=== PATIENT | female | born 1975 | race Caucasian/White ===

== ENCOUNTER 2019-04-13 02:40 | Emergency (ER) | payer BC, OTHER ==
[2019-04-13] MEDS ORDERED: DIPHENHYDRAMINE HCL 50 MG/ML VIAL IV ONE (04:18)
[2019-04-13] MEDS ORDERED: NORMAL SALINE 1000 ML 1,000 ML IV ONE ×2 (04:18→07:29)
[2019-04-13] MEDS ORDERED: PROCHLORPERAZINE EDISYLATE INJ 10 MG/2 ML VIAL IV ONE (04:18)
--- NOTE | 2019-04-13 04:40 | ER Document Report ---
ED Headache - General Chief Complaint: Headache >24 hrs old Stated Complaint: LEFT SIDE NUMBNESS Time Seen by Provider: 04/13/19 03:25 Mode of Arrival: Ambulatory Information source: Patient Notes: Patient is a 43-year-old female presenting to the emergency department chief complaint of headache that has been ongoing for 3 days. Patient denies history of migraines but reports that she has had headaches in the past. She states that when her headache first started it felt like a usual headache and had a gradual onset. She states it was located on the right side of her head and now has progressed around to the left side of her head.. She states she took Tylenol and then ibuprofen with no relief. Patient reports pain is been pretty persistent over the last 3 days although she has been able to fall sleep and sleep to the headache. She does report some light and noise sensitivity and a metallic taste in her mouth. She also reports some associated fatigue. She reports past medical history of diabetes. Patient reports she is concerned she may be having an aneurysm due to a family history of aneurysms and migraines. TRAVEL OUTSIDE OF THE [place] IN LAST 30 DAYS: No - Related Data Allergies/Adverse Reactions: ciprofloxacin [From Cipro] Allergy (Verified 04/13/19 03:08) ciprofloxacin HCl [From Cipro] Allergy (Verified 04/13/19 03:08) gatifloxacin [From Tequin] Allergy (Verified 04/13/19 03:08) loratadine [Loratadine] Allergy (Verified 04/13/19 03:08) Past Medical History - General Information source: Patient - Social History Smoking Status: Never Smoker Chew tobacco use (# tins/day): No Frequency of alcohol use: None Drug Abuse: None Family History: Arthritis, CAD, CVA, DM, Hyperlipidemia, Hypertension, Malignancy, Thyroid Disfunction, Other - 2 family members have of brain aneurysms, multiple family members have migraine headaches Patient has suicidal ideation: No Patient has homicidal ideation: No - Past Medical History Cardiac Medical History: Reports: Hx Hypertension Neurological Medical History: Reports: Hx Migraine Endocrine Medical History: Reports: Hx Diabetes Mellitus Type 2 Renal/ Medical History: Reports: Hx Kidney Stones. Denies: Hx Peritoneal Dialysis Malignancy Medical History: Reports: Hx Breast Cancer - cancer cell noted when surgery for mastitis completed Past Surgical History: Reports: Hx Breast Surgery - mastitis, Hx Gynecologic Surgery - leep, Hx Kidney (Renal Surgery) - renal stent - Immunizations Immunizations up to date: Yes Hx Diphtheria, Pertussis, Tetanus Vaccination: Yes Review of Systems - Review of Systems Constitutional: No symptoms reported. denies: Fever EENT: No symptoms reported Cardiovascular: No symptoms reported Respiratory: No symptoms reported Gastrointestinal: No symptoms reported Genitourinary: No symptoms reported Female Genitourinary: No symptoms reported Musculoskeletal: No symptoms reported Skin: No symptoms reported Hematologic/Lymphatic: No symptoms reported Neurological/Psychological: See HPI Physical Exam - Vital signs Vitals: Temp Pulse Resp BP Pulse Ox 98.4 F 110 H 14 152/87 H 98 04/13/19 02:43 04/13/19 02:43 04/13/19 02:43 04/13/19 02:43 04/13/19 02:43 - Notes Notes: PHYSICAL EXAMINATION: GENERAL: Well-appearing, well-nourished and in no acute distress. HEAD: Atraumatic, normocephalic. EYES: Pupils equal round and reactive to light, extraocular movements intact, conjunctiva are normal. ENT: Nares patent, oropharynx clear without exudates. Moist mucous membranes. NECK: Normal range of motion, supple without lymphadenopathy LUNGS: Breath sounds clear to auscultation bilaterally and equal. No wheezes rales or rhonchi. HEART: Regular rate and rhythm without murmurs ABDOMEN: Soft, nontender, nondistended abdomen. No guarding, no rebound. No masses appreciated. Female : deferred Musculoskeletal: Normal range of motion, no pitting or edema. No cyanosis. NEUROLOGICAL: Cranial nerves grossly intact. Normal speech, normal gait. Normal sensory, motor exams PSYCH: Normal mood, normal affect. SKIN: Warm, Dry, normal turgor, no rashes or lesions noted. Course - Re-evaluation Re-evalutation: Head CT was performed per patient request as she states that she is concerned that she has a brain aneurysm. CT was negative for any acute intracranial findings. Patient was given medications for migraine which have helped her headaches significantly. Now that we have a negative CT I will also order IV Toradol with plans to discharge patient home. - Vital Signs Vital signs: Temp Pulse Resp BP Pulse Ox 98.2 F 124 H 16 150/82 H 98 04/13/19 07:29 04/13/19 07:29 04/13/19 07:29 04/13/19 07:29 04/13/19 07:29 Discharge - Discharge Clinical Impression: Migraine Qualifiers: Migraine type: unspecified Status migrainosus presence: without status migrainosus Intractability: not intractable Qualified Code(s): G43.909 - Migraine, unspecified, not intractable, without status migrainosus Condition: Stable Disposition: HOME, SELF-CARE Additional Instructions: You were seen today for a migraine headache. Please follow-up with your primary care doctor regarding today's ED visit. Return to emergency department immediately if you develop a headache that gets to its maximum severity within 20 minutes of onset, you pass out, you develop weakness, numbness, changes in your vision, become unable to keep any fluids down for more than 12 hours, or develop a fever greater than 100.4 degrees Fahrenheit. If you develop a similar migraine headache in the future I recommend that you immediately take 600 mg of ibuprofen and 50 mg of Benadryl and go to sleep as quickly as possible. This can often prevent your migraine headache from becoming severe. If this does not help please take the Fioricet as prescribed. Please follow-up with your primary care provider, let them know you were seen here in the emergency department and had a normal brain CT done. Prescriptions: Butalb/Acetaminophen/Caffeine [Fioricet (50-325-40 mg) Tablet] 1 tab PO Q4HP PRN #15 tab PRN Reason: Forms: Return to Work
--- NOTE | 2019-04-13 04:52 | RADIOLOGY REPORT (SQ) ---
EXAM DESCRIPTION: CT HEAD WITHOUT IV CONTRAST COMPLETED DATE/TME: 04/13/2019 04:16 CLINICAL HISTORY: 43 years, Female, headache, worst ever COMPARISON: 11/26/2013 CT TECHNIQUE: 192 Images stored on PACS. All CT scanners at this facility use dose modulation, iterative reconstruction, and/or weight based dosing when appropriate to reduce radiation dose to as low as reasonably achievable (ALARA). [facility]: Dose Right [facility]: CareDose [facility]: Dose Right [facility]: Teradose 4D [facility]: Stratus5 LIMITATIONS: None. FINDINGS: The globes are intact. Paranasal sinuses and mastoid air cells are unremarkable. No displaced or depressed skull fracture. No intra or extra-axial hemorrhage. CT is limited for evaluation of acute infarct. No CT evidence for large or territorial acute infarct. No mass or midline shift IMPRESSION: No acute intracranial abnormality TECHNICAL DOCUMENTATION: Quality ID # 436: Final reports with documentation of one or more dose reduction techniques (e.g., Automated exposure control, adjustment of the mA and/or kV according to patient size, use of iterative reconstruction technique) copyright 2011 [employer]- All Rights Reserved
[2019-04-13] MEDS ORDERED: KETOROLAC TROMETHAMINE INJ/PF 30 MG/1 ML SDV IV ONE (07:29)
[2019-04-13 08:12] VITALS: BP 145/77
== END 2019-04-13 08:12 | disposition home or self-care (01) ==
LOC: ER 02:40
DX: G43.909 Migraine, unspecified, not intractable, without status migrainosus (principal); I10 Essential (primary) hypertension; E11.9 Type 2 diabetes mellitus without complications; Z88.3 Allergy status to other anti-infective agents; Z87.442 Personal history of urinary calculi; Z85.3 Personal history of malignant neoplasm of breast
CPT/HCPCS: 99284; 96361; 96374; 96375; 70450; J1200; J1885; J0780; J7030

== ENCOUNTER → 2019-10-10 | Outpatient (CLI) | payer OTHER ==
--- NOTE | 2019-10-10 11:45 | RADIOLOGY REPORT (SQ) ---
EXAM DESCRIPTION: U/S NON-OB PELVIS W/O DOP COMPLETED DATE/TIME: 10/10/2019 7:40 am REASON FOR STUDY: PELVIC PAIN (R10.2) R10.2 PELVIC AND PERINEAL PAIN COMPARISON: 03/25/2011 TECHNIQUE: Dynamic and static grayscale images acquired of the pelvis via transabdominal approach an d recorded on PACS. Additional selected color Doppler and spectral images recorded. LIMITATIONS: None. FINDINGS: UTERUS: Contour normal. No mass. ENDOMETRIAL STRIPE: No focal or generalized thickening. No masses. CERVIX: 1.9 cm. No nabothian cysts. RIGHT OVARY AND DOPPLER: Normal size. No worrisome masses. There is a cyst measuring 2.3 x 1.7 x 1.3 cm. Normal arterial vascular flow without evidence for torsion. LEFT OVARY AND DOPPLER: Normal size. No worrisome masses. Normal arterial vascular flow without evide nce for torsion. FREE FLUID: None noted. OTHER: No other significant finding. MEASUREMENTS: UTERUS: 8.5 x 4.6 x 3.9 cm. ENDOMETRIAL STRIPE: 2.5 mm. RIGHT OVARY: 3.1 x 2.2 x 2 cm. LEFT OVARY: 2.3 x 2.6 x 2.3 cm. IMPRESSION: There is a small right ovarian cyst that is almost certainly benign. No additional imag ing is required for this. No other significant finding. TECHNICAL DOCUMENTATION: JOB ID: [id number] [employer]- All Rights Reserved Rev-02/01 Reading location - IP/workstation name: [email or web address]
== END ==
LOC: RAD 07:06
PROVIDERS: ATTEND Nurse Practitioner Family
DX: R10.2 Pelvic and perineal pain (principal)
CPT/HCPCS: 76856

== ENCOUNTER → 2019-10-14 | Outpatient (CLI) | payer OTHER ==
--- NOTE | 2019-10-14 09:10 | WOMENS IMAGING REPORT ---
EXAM DESCRIPTION: [place] BILATERAL SCREEN COMPLETED DATE/TIME: 10/14/2019 8:26 am REASON FOR STUDY: JPWP Z12.31 SCREENING MAMMO JPWP Z12.31 ENCNTR SCREEN MAMMOGRAM FOR MALIGNANT EDWAR PLASM OF [place] COMPARISON: 2015 EXAM PARAMETERS: Standard craniocaudal and mediolateral oblique views of each breast recorded using digital acquisition. Read with the assistance of CAD. .[facility] - [employer] Marketing Analyst Version 9.2 LIMITATIONS: None. FINDINGS: No suspicious masses, suspicious calcifications or architectural distortion. No areas of c oncern. IMPRESSION: Negative MAMMOGRAM. BIRADS 1 BREAST DENSITY: b. There are scattered areas of fibroglandular density. BIRAD: ASSESSMENT: 1 NEGATIVE RECOMMENDATION: ROUTINE SCREENING COMMENT: The patient has been notified of the results by letter per MQSA requirements. Additional no tification policies are in place for contacting patient with suspicious or incomplete findings. Quality ID #225: The [employer] recommends an annual screening mammogram for women aged 40 years or over. This facility utilizes a reminder system to ensure that all patients receive reminder letters, and/or direct phone calls for appointments. This includes reminders for routine scr eening mammograms, diagnostic mammograms, or other Breast Imaging Interventions when appropriate. Th is patient will be placed in the appropriate reminder system. TECHNICAL DOCUMENTATION: FINDING NUMBER: (1) ASSESSMENT: (1) JOB ID: [id number] [employer]- All Rights Reserved Reading location - IP/workstation name: [email or web address]
== END ==
LOC: WI 07:30
PROVIDERS: ATTEND Nurse Practitioner Family
DX: Z12.31 Encounter for screening mammogram for malignant neoplasm of breast (principal)
CPT/HCPCS: 77067

== ENCOUNTER 2020-07-31 13:27 | Emergency (ER) | payer MEDICAID, OTHER ==
--- NOTE | 2020-07-31 13:46 | ER Document Report ---
ED Medical Screen (RME) - General Chief Complaint: Headache Stated Complaint: HEADACHE/ARM NUMBNESS/SORE THROAT Time Seen by Provider: 07/31/20 13:35 Primary Care Provider: KARISHMA CHUN ARNP [Primary Care Provider] - Follow up as needed Mode of Arrival: Ambulatory Information source: Patient Notes: HPI; 44-year-old female past medical history significant for migraines presents to the emergency room complaining of the worst headache of her life for the past 3 days. Complains of nausea with vomiting. States she has been taking Tylenol without relief. No head trauma head injury. No sudden thunderclap. Patient states she had sudden onset of left arm numbness around 11:30 AM. States while at work she kept dropping groceries due to the numbness and weakness to her left arm. PE: Alert and oriented x3. PERRLA, EOMI decreased sensation to painful stimuli to the left arm. [employer] Tutor strength decreased on the left. No facial droop noted. Lungs: Clear to auscultation without rales, rhonchi, wheezes. Heart: Rhythm without murmurs, rubs, gallops. Stroke alert was called. Charge nurse was notified. Patient was taken to CT by CORAZON Cruz I have greeted and performed a rapid initial assessment of this patient. A comprehensive ED assessment and evaluation of the patient, analysis of test results and completion of the medical decision making process will be conducted by additional ED providers. I have specifically instructed the patient or family members with the patient to immediately return to any nursing staff should anything change in the patient's condition or with their chief complaint. TRAVEL OUTSIDE OF THE [place] IN LAST 30 DAYS: No - Related Data Allergies/Adverse Reactions: ciprofloxacin [From Cipro] Allergy (Verified 04/13/19 03:08) ciprofloxacin HCl [From Cipro] Allergy (Verified 04/13/19 03:08) gatifloxacin [From Tequin] Allergy (Verified 04/13/19 03:08) loratadine [Loratadine] Allergy (Verified 04/13/19 03:08) Past Medical History - Past Medical History Cardiac Medical History: Reports: Hx Hypertension Neurological Medical History: Reports: Hx Migraine Endocrine Medical History: Reports: Hx Diabetes Mellitus Type 2 Renal/ Medical History: Reports: Hx Kidney Stones. Denies: Hx Peritoneal Dialysis Malignancy Medical History: Reports: Hx Breast Cancer - cancer cell noted when s urgery for mastitis completed Past Surgical History: Reports: Hx Breast Surgery - mastitis, Hx Gynecologic Surgery - leep, Hx Kidney (Renal Surgery) - renal stent - Immunizations Immunizations up to date: Yes Hx Diphtheria, Pertussis, Tetanus Vaccination: Yes Physical Exam - Vital signs Vitals: Temp Pulse Resp BP Pulse Ox 98.5 F 105 H 16 157/81 H 98 07/31/20 13:33 07/31/20 13:33 07/31/20 13:33 07/31/20 13:33 07/31/20 13:33 Course - Vital Signs Vital signs: Temp Pulse Resp BP Pulse Ox 98.5 F 105 H 16 157/81 H 98 07/31/20 13:33 07/31/20 13:33 07/31/20 13:33 07/31/20 13:33 07/31/20 13:33 Doctor's Discharge - Discharge Referrals: KARISHMA CHUN ARNP [Primary Care Provider] - Follow up as needed
[2020-07-31] MEDS ORDERED: PROCHLORPERAZINE EDISYLATE INJ 10 MG/2 ML VIAL IV ONE (14:08)
[2020-07-31] MEDS ORDERED: NORMAL SALINE 1000 ML 1,000 ML IV ONE (14:08)
--- NOTE | 2020-07-31 14:13 | RADIOLOGY REPORT (SQ) ---
EXAM DESCRIPTION: CHEST SINGLE VIEW IMAGES COMPLETED DATE/TIME: 07/31/2020 12:52 pm REASON FOR STUDY: Left arm numbness . COMPARISON: None. EXAM PARAMETERS: NUMBER OF VIEWS: One view. TECHNIQUE: Single frontal radiographic view of the chest acquired. RADIATION DOSE: NA LIMITATIONS: None. FINDINGS: LUNGS AND PLEURA: No opacities, masses or pneumothorax. No pleural effusion. MEDIASTINUM AND HILAR STRUCTURES: No masses. Contour normal. HEART AND VASCULAR STRUCTURES: Heart normal in size. Normal vasculature. BONES: No acute findings. HARDWARE: None in the chest. OTHER: No other significant finding. IMPRESSION: NO ACUTE RADIOGRAPHIC FINDING IN THE CHEST. TECHNICAL DOCUMENTATION: JOB ID: [id number] 2010 [email or web address]- All Rights Reserved Reading location - IP/workstation name: [email or web address]
--- NOTE | 2020-07-31 14:13 | RADIOLOGY REPORT (SQ) ---
EXAM DESCRIPTION: CT HEAD WITHOUT IMAGES COMPLETED DATE/TIME: 07/31/2020 12:59 pm REASON FOR STUDY: Left arm numbness. COMPARISON: CT head 03/14/2019 TECHNIQUE: Axial images acquired through the brain without intravenous contrast. Images reviewed wi th bone, brain and subdural windows. Additional sagittal and coronal reconstructions were generated. Images stored on PACS. All CT scanners at this facility use dose modulation, iterative reconstruction, and/or weight based d osing when appropriate to reduce radiation dose to as low as reasonably achievable (ALARA). [facility]: Dose Right [facility]: CareDose [facility]: Dose Right [facility]: Teradose 4D [facility]: Devicescape RADIATION DOSE: CT Rad equipment meets quality standard of care and radiation dose reduction techniq ues were employed. CTDIvol: 53.2 mGy. DLP: 884 mGy-cm. mGy. LIMITATIONS: None. FINDINGS: VENTRICLES: Normal size and contour. CEREBRUM: No masses. No hemorrhage. No midline shift. No evidence for acute infarction. Normal gra y/white matter differentiation. No areas of low density in the white matter. CEREBELLUM: No masses. No hemorrhage. No alteration of density. No evidence for acute infarction. EXTRAAXIAL SPACES: No fluid collections. No masses. ORBITS AND GLOBE: No intra- or extraconal masses. Normal contour of globe without masses. CALVARIUM: No fracture. PARANASAL SINUSES: No fluid or mucosal thickening. SOFT TISSUES: No mass or hematoma. OTHER: No other significant finding. IMPRESSION: NO ACUTE INTRACRANIAL IMAGING FINDINGS. EVIDENCE OF ACUTE STROKE: NO. COMMENT: Quality ID # 436: Final reports with documentation of one or more dose reduction techniques (e.g., Automated exposure control, adjustment of the mA and/or kV according to patient size, use of iterative reconstruction technique) TECHNICAL DOCUMENTATION: JOB ID: [id number] 2010 [employer]- All Rights Reserved Reading location - IP/workstation name: [email or web address]
[2020-07-31 14:25] LABS: ABSOLUTE EOSINOPHILS # (AUTO) 0.2 10^3/uL (0.0-0.6); ABSOLUTE MONOCYTES (AUTO) 0.3 10^3/uL (0.1-1.4); ABSOLUTE NEUT (AUTO) 3.6 10^3/uL (1.7-8.2); BASOPHILS % (AUTO) 0.7 % (0-2); EOSINOPHILS % (AUTO) 2.6 % (0-6); HEMATOCRIT 41.8 % (36.0-47.0); HEMOGLOBIN 14.2 g/dL (12.0-15.5); LYMPHOCYTES % (AUTO) 32.9 % (13-45); MEAN CORPUSCULAR HEMOGLOBIN 28.5 pg (27.0-33.4); MEAN CORPUSCULAR VOLUME 84 fl (80-97); MONOCYTES % (AUTO) 4.3 % (3-13); PLATELET COUNT 278 10^3/uL (150-450); RED BLOOD COUNT 4.99 10^6/uL (3.72-5.28); RED CELL DISTRIBUTION WIDTH 13.5 % (11.5-14.0); SEGMENTED NEUTROPHILS % (AUTO) 59.5 % (42-78); TOTAL CELLS COUNTED % (AUTO) 100 %
[2020-07-31 14:27] LABS: INTERNATIONAL RATION (INR) 0.92; PARTIAL THROMBOPLASTIN TIME 25.6 SEC (23.5-35.8); PROTHROMBIN TIME 12.6 SEC (11.4-15.4)
[2020-07-31 14:55] LABS: ALBUMIN 3.7 g/dL (3.5-5.0); ALKALINE PHOSPHATASE 95 U/L (38-126); ANION GAP 9 (5-19); ASPARTATE AMINO TRANSFERASE 16 U/L (14-36); BILIRUBIN,TOTAL 0.4 mg/dL (0.2-1.3); BLOOD UREA NITROGEN 9 mg/dL (7-20); CALCIUM 9.2 mg/dL (8.4-10.2); CARBON DIOXIDE 22 mmol/L (22-30); CHLORIDE 104 mmol/L (98-107); CREATINE KINASE 43 U/L (30-135); GLUCOSE 353 mg/dL (75-110); POTASSIUM 4.4 mmol/L (3.6-5.0); TOTAL PROTEIN 6.8 g/dL (6.3-8.2)
[2020-07-31 15:05] LABS: CREATINE KINASE MB < 0.22 ng/mL (<4.55); TROPONIN I < 0.012 ng/mL
--- NOTE | 2020-07-31 16:39 | ER Document Report ---
ED Headache - General Chief Complaint: S/S of Possible Stroke Stated Complaint: HEADACHE/ARM NUMBNESS/SORE THROAT Time Seen by Provider: 07/31/20 13:35 Primary Care Provider: KARISHMA CHUN ARNP [NO LOCAL MD] - Follow up as needed Mode of Arrival: Ambulatory Information source: Patient Notes: This 44-year-old woman presents to the emergency department with a complaint of a migraine headache for the past 4 days. Today she has developed left upper and left lower extremity weakness and brought in as a possible stroke alert. She states her headache is an 8/10. Patient was taken directly to CT scan and CT was negative for bleed. She complained of vision changes in the left eye, denies speech changes or facial droop. TRAVEL OUTSIDE OF THE [place] IN LAST 30 DAYS: No - Related Data Allergies/Adverse Reactions: ciprofloxacin [From Cipro] Allergy (Verified 04/13/19 03:08) ciprofloxacin HCl [From Cipro] Allergy (Verified 04/13/19 03:08) gatifloxacin [From Tequin] Allergy (Verified 04/13/19 03:08) loratadine [Loratadine] Allergy (Verified 04/13/19 03:08) Past Medical History - General Information source: Patient - Social History Smoking Status: Unknown if Ever Smoked Family History: Arthritis, CAD, CVA, DM, Hyperlipidemia, Hypertension, Malignancy, Thyroid Disfunction, Other - Past Medical History Cardiac Medical History: Reports: Hx Hypertension Neurological Medical History: Reports: Hx Migraine Endocrine Medical History: Reports: Hx Diabetes Mellitus Type 2 - no meds Renal/ Medical History: Reports: Hx Kidney Stones. Denies: Hx Peritoneal Dialysis Malignancy Medical History: Reports: Hx Breast Cancer - cancer cell noted when surgery for mastitis completed Past Surgical History: Reports: Hx Breast Surgery - mastitis, Hx Gynecologic Surgery - leep, Hx Kidney (Renal Surgery) - renal stent - Immunizations Immunizations up to date: Yes Hx Diphtheria, Pertussis, Tetanus Vaccination: Yes Review of Systems - Review of Systems Notes: Constitutional: Negative for fever. HENT: Negative for sore throat. Eyes: Negative for visual changes. Cardiovascular: Negative for chest pain. Respiratory: Negative for shortness of breath. Gastrointestinal: Negative for abdominal pain, vomiting or diarrhea. Genitourinary: Negative for dysuria. Musculoskeletal: Negative for back pain. Skin: Negative for rash. Neurological: See HPI 10 point ROS negative except as marked above and in HPI. Physical Exam - Vital signs Vitals: Temp Pulse Resp BP Pulse Ox 98.5 F 105 H 16 157/81 H 98 07/31/20 13:33 07/31/20 13:33 07/31/20 13:33 07/31/20 13:33 07/31/20 13:33 - Notes Notes: PHYSICAL EXAMINATION: Physical Exam: General: Well-nourished well-developed 44-year-old woman moderate distress secondary to headache/photophobia HEENT: NC/AT, pupils equal round and reactive to light, MM moist,nares clear, oropharynx clear, airway patent Neck: supple, no adenopathy, no masses. Good range of motion Lungs: clear, no wheezing, no rales no rhonchi CVS: Regular rate and rhythm no murmur gallop or rub Abdomen: Soft, active, nontender, no masses, no hepatosplenomegaly Ext: No edema, clubbing or cyanosis. Neuro: Alert and responsive, moving all 4 extremities on command, no obvious focal weakness is seen. Cranial nerves intact, no focal findings Skin: Intact no open lesions, no rash PSYCH: Normal mood, normal affect. Course - Re-evaluation Re-evalutation: 07/31/20 16:37 CT head was performed is negative. The patient was given Compazine 5 mg IV with resolution of her headache and resolution of her neurologic symptoms. Appears to be a atypical migraine with neurologic findings. Have discussed this with the patient and her father, she is being discharged home to follow-up with her regular physician as needed. 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 This completely resolved with treatment of the migraine. - Vital Signs Vital signs: Temp Pulse Resp BP Pulse Ox 98.5 F 97 22 H 133/85 H 97 07/31/20 13:33 07/31/20 15:00 07/31/20 15:00 07/31/20 15:00 07/31/20 15:00 - Laboratory Result Diagrams: 07/31/20 14:08 07/31/20 14:08 Laboratory results interpreted by me: 07/31/20 07/31/20 14:01 14:08 Sodium 134.6 L Creatinine 0.38 L Glucose 353 H POC Glucose 333 H 07/31/20 16:37 I have reviewed laboratory data and used this information for the treatment decisions regarding the patient. - Diagnostic Test Radiology reviewed: Image reviewed, Reports reviewed Radiology results interpreted by me: 07/31/20 16:37 Chest X-Ray 07/31/20 13:39 IMPRESSION: NO ACUTE RADIOGRAPHIC FINDING IN THE CHEST. Head CT 07/31/20 13:39 IMPRESSION: NO ACUTE INTRACRANIAL IMAGING FINDINGS. EVIDENCE OF ACUTE STROKE: NO. - EKG Interpretation by Me Rhythm: NSR - EKG interpreted by Dr. Hutchinson: Normal sinus rhythm, rate 102 [place] interval 184 ms QT interval 336 ms, normal axis, no acute ST or T wave abnormalities, no ischemic findings, there is no old EKG for comparison. Interpretation sinus tachycardia otherwise normal EKG Discharge - Discharge Clinical Impression: Migraine headache Qualifiers: Migraine type: other Status migrainosus presence: without status migrainosus Intractability: not intractable Qualified Code(s): G43.809 - Other migraine, not intractable, without status migrainosus Condition: Good Disposition: HOME, SELF-CARE Instructions: Intravenous Compazine for Headaches ([facility]), Migraine Headache ([facility]) Additional Instructions: You were seen in the emergency department today with a migraine headache and symptoms of weakness in the left upper and lower extremities. These findings are likely related to the migraine headache. Please follow-up with your doctor regarding the migraine headache. If the symptoms are worsening or if you have other concerns you may return to the emergency department for further evaluation and treatment HOME CARE INSTRUCTIONS & INFORMATION: Thank you for choosing us for your medical needs. We hope you're satisfied with the care you received. After you leave, you must properly care for your problem and, at the same time, observe its progress. Any condition can change. Some illnesses can change rapidly over hours or days. If your condition worsens, return to the Emergency Department or see your physician promptly. ABOUT YOUR X-RAYS AND EKG'S: If you had an EKG or X-rays taken, they have been read by the Emergency Physician. The X-rays and EKG's will also be read by a Radiologist or [employer]per[employer] Rod Assembler within 24 hours. If discrepancies are noted, you will be notified by telephone. Please be certain the ED has a correct telephone number & address where you can be reached. Also, realize that some fractures or abnormalities do not show up on initial X-rays. If your symptoms continue, see your physician. ABOUT YOUR LABORATORY TEST: If you had laboratory tests, the results have been reviewed by the Emergency Physician. Some test results (for example cultures) may not be available for several days. You will be contacted if any test result shows you need additional treatment. Please be certain the ED has a correct telephone number and address where you can be reached. ABOUT YOUR MEDICATIONS: You will receive instructions on how to take your medicine on the prescription label you receive. Additional information may be provided by the Pharmacy. If you have questions afterwards, call the ED for clarification or further instructions. Some prescribed medications may cause drowsiness. Do not perform tasks such as driving a car or operating machinery without consulting your Pharmacist. If you feel you need a refill of pain medication, your condition will need re-evaluation. Please do not call for a refill of any medication. ABOUT YOUR SIGNATURE: Signature of this document acknowledges to followin. Understanding that you received emergency treatment and that you may be released before al medical problems are known or treated. Please be certain the ED has a correct phone number & address where you can be reached. 2. Acknowledgement that you will arrange for follow-up care as recommended. 3. Authorization for the Emergency Physician to provide information to your follow-up Physician in order to maximize your care. AT ANY TIME, IF YOUR SYMPTOMS CHANGE SIGNIFICANTLY OR WORSEN OR YOU DEVELOP NEW SYMPTOMS, RETURN TO THE EMERGENCY DEPARTMENT IMMEDIATELY FOR RE-EVALUATION. OUR GOAL IS TO PROVIDE EXCELLENT MEDICAL CARE! WE HOPE THAT WE HAVE MET YOUR EXPECTATIONS DURING YOUR EMERGENCY DEPARTMENT VISIT AND THAT YOU FEEL YOU HAVE RECEIVED EXCELLENT CARE! Referrals: KARISHMA CHUN ARNP [NO LOCAL MD] - Follow up as needed
[2020-07-31 16:57] VITALS: BP 167/91
--- NOTE | 2020-08-01 08:55 | EKG REPORT ---
SEVERITY:- OTHERWISE NORMAL ECG - SINUS TACHYCARDIA : Confirmed by: Wendy Kendall 01-Aug-2020 08:55:11
== END 2020-07-31 16:54 | disposition home or self-care (01) ==
LOC: ER 13:27
DX: G43.809 Other migraine, not intractable, without status migrainosus (principal); M62.81 Muscle weakness (generalized); Z88.1 Allergy status to other antibiotic agents; Z88.8 Allergy status to other drugs, medicaments and biological substances; I10 Essential (primary) hypertension; E11.9 Type 2 diabetes mellitus without complications
CPT/HCPCS: 93005; 99285; 96361; 96374; 36415; 82553; 82962; 82550; 85025; 85610; 85730; 80053; 84484; 71045; 70450; 93010; J0780; J7030